=== PATIENT | male | born 1965 | race African-American/Black ===

== ENCOUNTER 2016-03-11 12:38 | Emergency (ER) | payer MEDICAID, OTHER ==
[~2016-03-11] VITALS: Ht 188 cm; Wt 136.1 kg
[2016-03-11 13:38] LABS: Basophils # (auto) 0 uL; Basophils % (auto) 0.5 % (0.0-2.0); Eosinophils # (auto) 0 uL; Eosinophils % (auto) 0.9 % (0.0-7.0); Hematocrit 45.7 % (41.0-53.0); Lymphocytes % (auto) 22.3 % (10.0-50.0); Mean Corpuscular Hemoglobin 29.2 pg (28.0-32.0); Mean Corpuscular Hgb Conc. 32.8 g/dL (32.0-36.0); Mean Corpuscular Volume 88.9 fL (80.0-100.0); Mean Platelet Volume 8.5 fL (7.4-10.4); Monocytes # (auto) 0.3 uL; Monocytes % (auto) 6.9 % (0.0-12.0); Neutrophils % (auto) 69.4 % (37.0-80.0); Platelet Count (auto) 290 10^3/uL (140-450); Red Cell Distribution Width 13.3 % (11.6-16.0); White Blood Cell 4.3 10^3/uL (4.4-10.8)
[2016-03-11 14:00] LABS: Albumin 4.1 g/dL (3.4-5.0); BUN/Creatinine Ratio 10.3; Bilirubin, Total 0.5 mg/dL (0.2-1.0); Calcium 8.8 mg/dL (8.5-10.1); Potassium 3.9 mmol/L (3.5-5.1); Total Protein 7.8 g/dL (6.4-8.2)
[2016-03-11] MEDS ORDERED: cloNIDine HCL 0.1 MG TAB PO ONE (15:30)
[2016-03-11] MEDS ORDERED: LORazepam 2MG/ML-1ML VIAL IV ONE (16:00)
[2016-03-11] MEDS ORDERED: GABA300C8 PO (16:20)
[2016-03-11] MEDS ORDERED: ATEN50TA (16:20)
[2016-03-11] MEDS ORDERED: SPIR25TA89 PO (16:20)
[2016-03-11] MEDS ORDERED: BENA10TA3 PO (16:20)
[2016-03-11] MEDS ORDERED: FURO20TA3 PO (16:20)
[2016-03-11] MEDS ORDERED: NIFE30TA76 (16:20)
[2016-03-11] MEDS ORDERED: LOSARTAN-HCTZ (16:20)
[2016-03-11 17:35] VITALS: BP 131/73
== END 2016-03-11 17:40 | disposition home or self-care (01) ==
LOC: ER 12:45
DX: I10 Essential (primary) hypertension (principal); F17.210 Nicotine dependence, cigarettes, uncomplicated
CPT/HCPCS: 36415; 71020; 80053; 84484; 85025; 85049; 93005; 96374; 99285; J2060